=== PATIENT | male | born 1940 | race Two or more races ===

== ENCOUNTER 2019-11-12 19:33 | Inpatient (IN) | payer MEDICARE, OTHER ==
[~2019-11-12] VITALS: Ht 160 cm; Wt 78.6 kg
[2019-11-12] MEDS ORDERED: ONDANSETRON HCL/PF 4 MG/2 ML VIAL IVP PRN (20:00)
[2019-11-12] MEDS ORDERED: HYDROCODONE/APAP 5/325MG 1 EACH TABLET PO PRN (20:00)
[2019-11-12] MEDS ORDERED: MAGNESIUM HYDROXIDE 30 ML UDC PO PRN (20:00)
[2019-11-12] MEDS ORDERED: DEXTROSE 50%-WATER 50 ML DISP.SYRIN IV PRN (20:00)
[2019-11-12] MEDS ORDERED: Z GUARD REMEDY 2 OZ OINT TP PRN (20:00)
[2019-11-12] MEDS ORDERED: MAG HYDROX/AL HYDROX/SIMETH 30 ML UDC PO PRN (20:00)
[2019-11-12] MEDS ORDERED: ACETAMINOPHEN 325 MG TABLET PO PRN (20:00)
[2019-11-12] MEDS ORDERED: MORPHINE SULFATE INJ 2 MG/ML DISP.SYRIN IV PRN (20:00)
[2019-11-12] MEDS ORDERED: ZOLPIDEM TARTRATE 5 MG TABLET PO PRN (20:00)
[2019-11-12 23:00] VITALS: BP 100/53
--- NOTE | 2019-11-12 23:00 | NUR ---
MS WAX POURER NOTES RECEIVED PATIENT FROM [facility] [employer], ACCOMPANIED BY 3EMT'S. ALERT AND ORIENTED X 3 VERBALLY RESPONSIVE COLOMBIAN SPEAKING MALE. ABLE TO FOLLOW DIRECTIONS. BREATHING REGULAR AND UNLABORED ON ROOM AIR. RIGHT AC G20 IV LINE INTACT AND PATENT, FLUSHING WELL WITH NO BLEEDING OR S/S OF INFILTRATION NOTED. BODY ASSESSMENT DONE, SEEN WITH RIGHT LOWER EXTREMITY REDNESS AND SWELLING AND LEFT LOWER EXTREMITY DRY SCABS. PHOTO TAKEN, ATTACHED TO CHART. PATIENT DIDN'T HAVE ADVANCED DIRECTIVES AND WISHED TO BE FULL CODE. DENIES SUICIDAL IDEATION OR PAIN/DISCOMFORT AT THIS TIME. BED LOW AND LOCKED ON SEMI FOWLERS POSITION. CALL LIGHT IN REACH. WILL CONTINUE TO MONITOR.
--- NOTE | 2019-11-13 00:30 | NUR ---
MS RN NOTES MRSA SWAB DONE. IV FLUIDS OF NS AT 75cc/hr STARTED, INFUSING WELL.
[2019-11-13] MEDS: BLOOD SUGAR DIAGNOSTIC 1 EACH STRIP IN SCH ×5 (00:47→22:55)
[2019-11-13] MEDS: INSULIN REGULAR, HUMAN 100 UNIT/ML 3 ML VIAL SQ PRN ×5 (00:48→22:56)
[2019-11-13] MEDS ORDERED: CEFTRIAXONE 1 G in IV D5W 50 ML IV SCH (00:53)
[2019-11-13] MEDS ORDERED: VANCOMYCIN 1.5 GM in IV D5W 500ml IV ONE (01:00)
--- NOTE | 2019-11-13 01:00 | NUR ---
MS RN NOTES REFUSED DVT PUMP FOR NOW, RISK AND BENEFITS EXPLAINED. WILL FOLLOW/UP WITH MD REGARDING ORDERS TO CHEMICAL DVT PPX.
[2019-11-13] MEDS ORDERED: VANCOMYCIN 1 GM VIAL ONE ×2 (01:04→01:46)
[2019-11-13] MEDS ORDERED: CEFTRIAXONE 1 G VIAL ONE (02:01)
[2019-11-13 02:14] VITALS: BP 100/53
[2019-11-13] MEDS: IV NS 0.9% 1,000 ML IV PRN ×2 (02:43→22:56)
--- NOTE | 2019-11-13 06:55 | NUR ---
MS RN CLOSING NOTES PATIENT IN BED ALERT AND ORIENTED X 3. AFEBRILE WITH NO S/S OF DISTRESS OBSERVED. RIGHT AC G20 IV LINE PATENT AND INFUSING WELL. NO COMPLAINTS OF PAIN/DISCOMFORT AT THIS TIME. BED LOW AND LOCKED ON SEMI FOWLERS POSITION. CALL LIGHT IN REACH. WILL ENDORSE TO MORNING SHIFT FOR DOC.
[2019-11-13 07:27] LABS: EOSINOPHILS % (AUTO) 0.3 % (0.0-6.0); HEMATOCRIT 32 % (39-51); HEMOGLOBIN 10.6 g/dL (13.5-17.5); LYMPHOCYTES # (AUTO) 0.6 /CMM (0.8-4.8); LYMPHOCYTES % (AUTO) 4.8 % (20.0-44.0); MEAN CORPUSCULAR HGB CONC 33 g/dl (31.0-36.0); MEAN CORPUSCULAR VOLUME 98 fL (80-96); MONOCYTES % (AUTO) 7.7 % (2.0-12.0); NEUTROPHILS # (AUTO) 11.2 /CMM (1.8-8.9); NEUTROPHILS % (AUTO) 87.2 % (43.0-81.0); PLATELET COUNT (AUTO) 190 /CMM (150-450); RED BLOOD CELL COUNT(AUTO) 3.23 MIL/uL (4.5-6.0); WHITE BLOOD COUNT (AUTO) 12.8 K/uL (4.3-11.0)
[2019-11-13] MEDS ORDERED: METF-440 MT (07:48)
[2019-11-13] MEDS ORDERED: ASPI-1152 MT (07:48)
[2019-11-13] MEDS ORDERED: ATOR80TA MT (07:48)
[2019-11-13] MEDS ORDERED: TERA1CAP11 MT (07:48)
[2019-11-13] MEDS ORDERED: BENA20TA9 MT (07:48)
[2019-11-13 07:53] LABS: CALCIUM, SERUM 8.2 mg/dL (8.5-10.1); CREATININE 1.3 mg/dL (0.6-1.3); MAGNESIUM 2.4 mg/dL (1.8-2.4); PHOSPHORUS 2.6 mg/dL (2.5-4.9); POTASSIUM 3.5 mmol/L (3.5-5.1)
--- NOTE | 2019-11-13 07:53 | NUR ---
MS RN OPENING NOTES RECEIVED PATIENT IN BED, AWAKE, A/O X3. PATIENT IS ON ROOM AIR; BREATHING IS EVEN AND UNLABORED; NO SOB PRESENT AT THIS MOMENT. NO COMPLAIN OF PAIN. RAC IV ACCESS G # 20 IN P-LACE AND INTACT INFUSING NS AT 75 MLS/HR. SAFETY PRECAUTIONS IN PLACE; BED IN LOW POSITION AND LOCKED, RAILS UP X2, CALL LIGHT WITHIN REACH. WILL CONTINUE TO MONITOR PATIENT.
[2019-11-13 07:56] LABS: THYROID STIMULATING HORMONE 0.274 uIU/mL (0.358-3.74)
[2019-11-13 08:00] VITALS: BP 104/62
--- NOTE | 2019-11-13 08:00 | NUR ---
WOUND CARE CONSULT: PT PRESENTS WITH REDNESS AND SWELLING TO RT LOWER LEG AND FOOT, PRESENT ON ADMISSION. SOME DRY SCABS AND HEALED AREAS NOTED TO BILATERAL LOWER LEGS PRESENT ON ADMISSION. RECOMMENDATIONS MADE FOR SKIN PROTECTION. DISCUSSED WITH NURSING STAFF. PT IS INDEPENDENT WITH BED MOBILITY AND IS CONTINENT. WILL SEE PRNarinder VOSS IN AGREEMENT WITH PLAN OF CARE.
[2019-11-13] MEDS ORDERED: FEE PK DOSING 1 MIN EA MC ONE (08:22)
[2019-11-13 16:00] VITALS: BP 117/60
[2019-11-13] MEDS: ENOXAPARIN SODIUM 40 MG/0.4 ML DISP.SYRIN SQ SCH (16:22)
--- NOTE | 2019-11-13 16:50 | NUR ---
MS RN NOTES COVID-19 SWAB DONE AND TAKEN TO THE LAB
--- NOTE | 2019-11-13 19:10 | NUR ---
MS RN NOTES RECEIVED PT IN BED AWAKE AND ABLE TO MAKE NEEDS KNOWN. PT A/O X3 WOLOF SPEAKING. RESPIRATIONS EVEN AND UNLABORED WITH NO S/S OF ACUTE DISTRESS OR SOB NOTED. NO COMPLAINTS OF PAIN AT THIS TIME. PT WITH LAC #20 INFUSING NS @75CC/HR. SAFETY MEASURES IN PLACE WITH BED IN LOWEST LOCKED POSITION WITH SIDE RAILS UP X2. CALL LIGHT WITHIN REACH. WILL CONTINUE TO MONITOR.
--- NOTE | 2019-11-13 19:15 | NUR ---
MS RN CLOSING NOTES PATIENT IN BED, AWAKE, A/O X3. PATIENT IS ON ROOM AIR; BREATHING IS EVEN AND UNLABORED; NO SOB PRESENT AT THIS MOMENT. NO COMPLAIN OF PAIN THROUGHOUT THE DAY. RAC IV ACCESS G # 20 IN P-LACE AND INTACT. ALL NEEDS ATTENDED TO THROUGHOUT THE DAY. SAFETY PRECAUTIONS IN PLACE; BED IN LOW POSITION AND LOCKED, RAILS UP X2, CALL LIGHT WITHIN REACH. WILL ENDORSE TO CELL LINER NURSE.
[2019-11-13 20:00] VITALS: BP 129/71
--- NOTE | 2019-11-13 22:55 | NUR ---
MS RN NOTES PT REFUSED INSULIN COVERAGE AT THIS TIME. WILL CONTINUE TO MONITOR.
[2019-11-14] MEDS ORDERED: VANCOMYCIN 1.25 GM in IV D5W 250 ML IV SCH (02:00)
[2019-11-14] MEDS: CEFTRIAXONE 1 G in IV D5W 50 ML IV SCH (04:13)
[2019-11-14] MEDS: BLOOD SUGAR DIAGNOSTIC 1 EACH STRIP IN SCH ×4 (06:39→21:22)
[2019-11-14] MEDS: INSULIN REGULAR, HUMAN 100 UNIT/ML 3 ML VIAL SQ PRN ×3 (06:40→16:53)
--- NOTE | 2019-11-14 07:34 | NUR ---
MS RN NOTES RECEIVED PT IN BED AWAKE AND ABLE TO MAKE NEEDS KNOWN. PT A/O X3 DANISH SPEAKING. RESPIRATIONS EVEN AND UNLABORED WITH NO S/S OF ACUTE DISTRESS OR SOB NOTED THROUGHOUT SHIFT. NO COMPLAINTS OF PAIN AT THIS TIME. PT WITH LAC #20 INFUSING NS @75CC/HR. SAFETY MEASURES IN PLACE WITH BED IN LOWEST LOCKED POSITION WITH SIDE RAILS UP X2. CALL LIGHT WITHIN REACH. WILL ENDORSE TO ONCOMING NURSE FOR DOC.
[2019-11-14 08:00] VITALS: BP 130/72
--- NOTE | 2019-11-14 08:00 | NUR ---
rn notes received patient in the bed a/o x3, Bengali speaker, v/s wnl. patient need assist to bathroom, iv acces on right ac angel intact infusing ns at 75 ml/hr intact. Edema ble , redness, and edema. patient using urinal.
[2019-11-14 08:24] LABS: BASOPHILS % (AUTO) 0.1 % (0.0-2.0); CALCIUM, SERUM 8.5 mg/dL (8.5-10.1); CREATININE 1.1 mg/dL (0.6-1.3); EOSINOPHILS % (AUTO) 0.4 % (0.0-6.0); HEMATOCRIT 37 % (39-51); HEMOGLOBIN 12.1 g/dL (13.5-17.5); LYMPHOCYTES # (AUTO) 0.8 /CMM (0.8-4.8); LYMPHOCYTES % (AUTO) 8.6 % (20.0-44.0); MAGNESIUM 2.1 mg/dL (1.8-2.4); MEAN CORPUSCULAR HGB CONC 33 g/dl (31.0-36.0); MEAN CORPUSCULAR VOLUME 100 fL (80-96); MONOCYTES # (AUTO) 0.7 /CMM (0.1-1.30); MONOCYTES % (AUTO) 7.3 % (2.0-12.0); NEUTROPHILS # (AUTO) 7.4 /CMM (1.8-8.9); NEUTROPHILS % (AUTO) 83.6 % (43.0-81.0); PHOSPHORUS 2.2 mg/dL (2.5-4.9); PLATELET COUNT (AUTO) 224 /CMM (150-450); POTASSIUM 3.5 mmol/L (3.5-5.1); WHITE BLOOD COUNT (AUTO) 8.9 K/uL (4.3-11.0)
[2019-11-14] MEDS: ENOXAPARIN SODIUM 40 MG/0.4 ML DISP.SYRIN SQ SCH (10:11)
--- NOTE | 2019-11-14 12:00 | NUR ---
RN NOTES BS-209 MG/DL COVERAGE GIVEN, PATIENT TOLERATED LUNCH WELL, UNKEMPT. REFUSED DAILY HYGIENE, MAORI SPEAKER. EXPLAINED PATIENT AND ALSO ENROLLMENT ADVISOR EXPLAINED WELL . PATIENT STATE I DO NOT WANTED TO DRESS WITH HOSPITAL GOWN, MY DAUGHTER WILLING BRING CLOTHES ". WILL CONTINUED MONITORING.
[2019-11-14] MEDS ORDERED: K PHOS NEUTRAL 250 MG TABLET PO ONE (15:00)
[2019-11-14] MEDS: VANCOMYCIN 0.75 GM in IV D5W 250 ML IV SCH (15:03)
[2019-11-14 16:00] VITALS: BP 117/65
[2019-11-14 16:16] VITALS: BP 117/65
--- NOTE | 2019-11-14 18:54 | NUR ---
rn notes administered narco5/325 mg po prn for right lower leg pain 10/16 per patient request, v/s taken bp 117/65, p-60 ,r-17. bs-184mg/dl coverage given, . elevated ble using pillows, call light within to reach, continued monitoring. endorsed oncoming nurse follow plan of care.
[2019-11-14 20:00] VITALS: BP 141/69
--- NOTE | 2019-11-14 22:00 | NUR ---
MS RN NOTES BS CHECKED 172. PT REFUSED TO HAVE INSULIN COVERAGE AT THIS TIME. EXPLAINED TO PT IMPORTANCE OF INSULIN COVERAGE IN HIS POC BUT PT STILL REFUSED. WILL CONTINUE TO MONITOR
--- NOTE | 2019-11-15 01:00 | NUR ---
MS RN NOTES PT PULLED OUT IV-HL. REINSERTED IV-HL USING G24 AT L HAND. PT TOLERATED WELL. WILL CONTINUE TO MONITOR
[2019-11-15] MEDS: VANCOMYCIN 0.75 GM in IV D5W 250 ML IV SCH ×3 (02:00→15:22)
--- NOTE | 2019-11-15 02:00 | NUR ---
MS RN NOTES PT PULLED OUT IV-HL. REINSERTED IV-HL USING G24 AT R HAND. PT TOLERATED WELL. WILL CONTINUE TO MONITOR
[2019-11-15] MEDS: IV NS 0.9% 1,000 ML IV PRN (02:20)
[2019-11-15] MEDS: CEFTRIAXONE 1 G in IV D5W 50 ML IV SCH (03:00)
--- NOTE | 2019-11-15 03:00 | NUR ---
MS RN NOTES PT PULLED OUT IV-HL 3X. TRIED TO REINSERT IV-HL BUT PT IS REFUSING TO HAVE IV-HL AND IV-ATB. EXPLAINED TO PT IMPORTANCE OF IV-ATB IN HIS POC BUT PT STILL REFUSED. WILL CONTINUE TO MONITOR.
--- NOTE | 2019-11-15 06:20 | NUR ---
MS RN NOTES AWAKE & RESPONSIVE. NOT IN ANY DISTRESS. NO SOB NOTED. DENIES ANY PAIN OR DISCOMFORT AT THIS TIME. AM CARE DONE. MONITORED ACCORDINGLY. CALL LIGHT WITHIN REACH. BED IN LOWEST POSITION. SR UP X 3 WITH BED ALARM ON FOR SAFETY. WILL ENDORSE TO NEXT SHIFT.
[2019-11-15] MEDS: BLOOD SUGAR DIAGNOSTIC 1 EACH STRIP IN SCH ×4 (06:31→21:48)
[2019-11-15] MEDS: INSULIN REGULAR, HUMAN 100 UNIT/ML 3 ML VIAL SQ PRN ×4 (06:32→21:52)
[2019-11-15 06:47] LABS: BASOPHILS % (AUTO) 0.5 % (0.0-2.0); EOSINOPHILS % (AUTO) 0.9 % (0.0-6.0); HEMATOCRIT 34 % (39-51); HEMOGLOBIN 11.3 g/dL (13.5-17.5); LYMPHOCYTES # (AUTO) 0.7 /CMM (0.8-4.8); LYMPHOCYTES % (AUTO) 11.8 % (20.0-44.0); MEAN CORPUSCULAR HGB CONC 34 g/dl (31.0-36.0); MEAN CORPUSCULAR VOLUME 98 fL (80-96); MONOCYTES # (AUTO) 0.6 /CMM (0.1-1.30); MONOCYTES % (AUTO) 10.2 % (2.0-12.0); NEUTROPHILS # (AUTO) 4.2 /CMM (1.8-8.9); NEUTROPHILS % (AUTO) 76.6 % (43.0-81.0); PLATELET COUNT (AUTO) 228 /CMM (150-450); RED BLOOD CELL COUNT(AUTO) 3.43 MIL/uL (4.5-6.0); WHITE BLOOD COUNT (AUTO) 5.5 K/uL (4.3-11.0)
[2019-11-15 07:09] LABS: CALCIUM, SERUM 8.7 mg/dL (8.5-10.1); CREATININE 1.1 mg/dL (0.6-1.3); POTASSIUM 3.5 mmol/L (3.5-5.1)
--- NOTE | 2019-11-15 07:25 | NUR ---
MS RN OPENING NOTES RECEIVED PT IN BED, AWAKE, AMBULATORY, A/OX 2-3. PT TOLERATING RA, WITH NO ACUTE RESPIRATORY DISTRESS NOTED. PT DENIES ANY PAIN OR DISCOMFORT AT THIS TIME. PT DENIES ANY CONCERNS OR QUESTIONS WELL. NO PIV NOTED, PER NIGHT NURSE PT HAS BEEN PULLING OUT THE LINE, REFUSED IV ATBX. PT KEPT COMFORTABLE. CALL LIGHT KEPT WITHIN REACH. CALL LIGHT KEPT WITHIN REACH. PT'S BED IN LOWEST, LOCKED POSITION WITH SR X3.
[2019-11-15 08:00] VITALS: BP 107/61
[2019-11-15] MEDS: ENOXAPARIN SODIUM 40 MG/0.4 ML DISP.SYRIN SQ SCH (08:13)
--- NOTE | 2019-11-15 10:30 | NUR ---
MS RN NOTES SEEN AND EVALUATED BY HOSPITALIST/TS, AND PT MADE AWARE THAT HE MIGHT GO HOME TOMORROW, JUST CONTINUE IV ATBX. WILL CONTINUE TO MONITOR.
--- NOTE | 2019-11-15 15:04 | NUR ---
MS RN NOTES VANCO TROUGH RESULT STILL PENDING. CALLED AND SPOKE TO RAMYA, WILL FOLLOW UP WITH THE RESULT. WILL CONTINUE PLAN OF CARE.
[2019-11-15 16:00] VITALS: BP 136/72
--- NOTE | 2019-11-15 18:41 | NUR ---
MS RN CLOSING NOTES PT REMAINS IN BED, AWAKE,A/OX 3-4. PT TOLERATING RA, WITH NO ACUTE RESPIRATORY DISTRESS NOTED. PT DENIES ANY PAIN OR DISCOMFORT AT THIS TIME. IVF NS AT 75ML/HR TO RFA G20, INTACT AND FLUID INFUSING WELL. PT KEPT COMFORTABLE. ALL NEEDS AND CARE ATTENDED. CALL LIGHT KEPT WITHIN REACH. CALL LIGHT KEPT WITHIN REACH. PT'S BED IN LOWEST, LOCKED POSITION WITH SR X3. WILL ENDORSE TO INCOMING NIGHT NURSE FOR DOC.
--- NOTE | 2019-11-15 19:33 | NUR ---
RECEIVED PATIENT IN HIS BED. NOTED HE IS LYING ON TOP OF THE COVERS. NO C/O AND REMINDED TO NOT TOUCH THE iv SITE D/T HE IS RECEIVEING MEDICATIONS a/ox3
[2019-11-15 20:00] VITALS: BP 122/71
[2019-11-16] MEDS: VANCOMYCIN 0.75 GM in IV D5W 250 ML IV SCH ×2 (01:20→13:13)
[2019-11-16] MEDS: CEFTRIAXONE 1 G in IV D5W 50 ML IV SCH (02:39)
--- NOTE | 2019-11-16 04:49 | NUR ---
NOTED MR. ACUNA AT NIGHT BECOME CONFUSED AND NOT SLEEPING. hE WILL GET OOB FREQUENTLY AMBULATE TO THE BATHROOM, GET OOBUSE THE URINALS. AMBULATE IN THE ROOM AND CHECK HIS BELONGINGS FREQUENTLY. HE REMOVED HIS IV X1, BUT NOTED X3 MAKING THE ATTEMPT. HE IS FRENCH SPEAKING AND WE HAD A FRENCH SPEAKING NURSE SPEAK TO HIM AND HE HAD NO COMPREHENSION WHAT THE NURSE WAS SAYING TO HIM. NEW IV STARTED AND A FLESH SLEEVE APPLIED. HE ATTEMPED ONCE TO REMOVE THE SLEEVE BUT COULDN'T DO IT GETTING THE COVER OVER HIS THUMB. BOTH ATBX GIVEN ORDERED. HE IS FRIENDLY BUT CONFUSED AND FOCUSED ON WHAT HE DECIDES TO DO, MAKE HIS BED, CLEAN HIS ROOM, PICK PAPER OFF THE FLOOR. HIS RIGHT LEF 1= SWOLLEN AND RED WITH NOTED DRY SCABS. PLACED ON A PILLOW BUT HE DID NOT KEEP IT THERE. NO C/O PAIN FOOT WARM TO TOUCH AND TOES MOVABLE PPP,
[2019-11-16] MEDS: BLOOD SUGAR DIAGNOSTIC 1 EACH STRIP IN SCH ×2 (06:11→11:22)
[2019-11-16] MEDS: INSULIN REGULAR, HUMAN 100 UNIT/ML 3 ML VIAL SQ PRN ×2 (06:15→11:23)
[2019-11-16 07:01] LABS: BASOPHILS % (AUTO) 0.6 % (0.0-2.0); EOSINOPHILS % (AUTO) 2.1 % (0.0-6.0); HEMATOCRIT 36 % (39-51); HEMOGLOBIN 11.9 g/dL (13.5-17.5); LYMPHOCYTES # (AUTO) 0.9 /CMM (0.8-4.8); LYMPHOCYTES % (AUTO) 17.4 % (20.0-44.0); MEAN CORPUSCULAR HGB CONC 33 g/dl (31.0-36.0); MEAN CORPUSCULAR VOLUME 99 fL (80-96); MONOCYTES # (AUTO) 0.5 /CMM (0.1-1.30); MONOCYTES % (AUTO) 9.8 % (2.0-12.0); NEUTROPHILS # (AUTO) 3.7 /CMM (1.8-8.9); NEUTROPHILS % (AUTO) 70.1 % (43.0-81.0); PLATELET COUNT (AUTO) 292 /CMM (150-450); RED BLOOD CELL COUNT(AUTO) 3.63 MIL/uL (4.5-6.0); WHITE BLOOD COUNT (AUTO) 5.3 K/uL (4.3-11.0)
[2019-11-16 07:17] LABS: CALCIUM, SERUM 9.1 mg/dL (8.5-10.1); CREATININE 1.1 mg/dL (0.6-1.3); PHOSPHORUS 3.4 mg/dL (2.5-4.9); POTASSIUM 3.1 mmol/L (3.5-5.1)
--- NOTE | 2019-11-16 07:33 | NUR ---
MS RN NOTES RECEIVED PT IN BED, AWAKE,A/OX 2-3, ANGUILLAN SPEAKING. PT TOLERATING RA, WITH NO ACUTE RESPIRATORY DISTRESS NOTED. PT DENIES ANY PAIN OR DISCOMFORT AT THIS TIME. PT DENIES ANY CONCERNS OR QUESTIONS WELL. IVF NS AT 75ML/HR TO RFA G20, INTACT AND FLUID INFUSING WELL. PT KEPT COMFORTABLE. CALL LIGHT KEPT WITHIN REACH. CALL LIGHT KEPT WITHIN REACH. PT'S BED IN LOWEST, LOCKED POSITION WITH SR X3. WILL CONTINUE PLAN OF CARE.
[2019-11-16 08:00] VITALS: BP 122/65
[2019-11-16] MEDS: ENOXAPARIN SODIUM 40 MG/0.4 ML DISP.SYRIN SQ SCH (08:22)
[2019-11-16] MEDS: POTASSIUM CHLORIDE 20 MEQ TAB.PRT.SR PO SCH (13:06)
[2019-11-16] MEDS ORDERED: CEPH-570 PO (13:51)
--- NOTE | 2019-11-16 16:27 | NUR ---
MS SALES TRADER NOTES PT AWAKE,A/OX 2-3, GEORGIAN SPEAKING, AMBULATORY. PT TOLERATING RA, WITH NO ACUTE RESPIRATORY DISTRESS NOTED. PT DENIES ANY PAIN OR DISCOMFORT AT THE TIME OF DISCHARGE. PT WASN'T COMFORTABLE SIGNING DISCHARGE PAPERS. RN GAVE INTRUCTIONS TO THE DAUGHTER/KELLIE AND SON/ANGELIC. ANGELIC/SON SIGNED DISCHARGE INSTRUCTIONS AND INVENTORY LIST. NEW ANTIBIOTIC PRESCRIBED SENT ELECTRONICALLY TO THE PHARMACY, PT AWARE TO STILL OPERATOR WHISKEY AND FOLLOW UP WITH PRIMARY CARE PHYSICIAN IN A WEEK. SKIN ASSESSED, PICTURES TAKEN AND FILED IN THE CHART. SHOWED COMPARISON OF THE RIGHT LEG TO THE PATIENT. PIV TO RFA G20, REMOVED AND APPLIED DRY DRESSING. ALL NEEDS AND CARE ATTENDED. HOSPITALIST/TS AWARE OF DISCHARGE. VS STABLE. PT ESCORTED TO THE LOBBY VIA WHEELCHAIR AND ASSISTED TO THE CAR. PT LEFT THE UNIT AT 1615.
== END 2019-11-16 16:15 | disposition home or self-care (01) | DRG 602 ==
LOC: MEDSG2 22:34
PROVIDERS: ADMIT Nurse Practitioner Acute Care; ATTEND Nurse Practitioner Acute Care
DX: L03.115 Cellulitis of right lower limb (principal); N17.0 Acute kidney failure with tubular necrosis; D72.829 Elevated white blood cell count, unspecified; E66.9 Obesity, unspecified; E11.65 Type 2 diabetes mellitus with hyperglycemia; Z68.30 Body mass index [BMI] 30.0-30.9, adult; Z79.84 Long term (current) use of oral hypoglycemic drugs; Z91.81 History of falling
CPT/HCPCS: 36415; 80048-TC; 80061-TC; 80202-TC; 82962-TC; 83735-TC; 84100-TC; 84443-TC; 85025-TC; 87081-TC; 97116-TC; 97530-TC; G0378; J0696; J1650; J1815; J3370; J3490; J7030; J7060; U0003-CS